=== PATIENT | male | born 1970 | race Asian ===

== ENCOUNTER 2019-04-05 13:10 | Emergency (ER) | payer BC, OTHER ==
[2019-04-05 13:51] VITALS: BP 136/86
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
== END 2019-04-05 14:47 | disposition home or self-care (01) ==
LOC: UCEAST 13:10
DX: T25.231A Burn of second degree of right toe(s) (nail), initial encounter (principal); T31.0 Burns involving less than 10% of body surface; X11.8XXA Contact with other hot tap-water, initial encounter; Y92.9 Unspecified place or not applicable; I10 Essential (primary) hypertension; F32.9 Major depressive disorder, single episode, unspecified
CPT/HCPCS: 99211; G0463